=== PATIENT | female | born 1965 | race Caucasian/White ===

== ENCOUNTER 2019-11-19 10:54 | Outpatient (CLI) | payer OTHER, SELFPAY ==
--- NOTE | ~2019-11-19 | US_ITS ---
EXAMINATION: US pelvic complete w TV DATE: 11/19/2019 11:43 INDICATION: Postmenopausal bleeding TECHNIQUE: Multiple transabdominal and endovaginal sonographic images of the pelvis were obtained. COMPARISON: None. FINDINGS: The uterus measures 9.1 x 4 x 5.3 cm. A 2.3 x 2.0 cm isoechoic mass in the anterior uterine body has the appearance of an intramural fibroid. The endometrial complex measures 4 mm. The left ov homero is not visualized however no left adnexal abnormality is seen. The right ovary measures 1.3 x 1.2 x 1 cm. There is normal vascular flow in the right ovary. There is no free fluid in the pelvis. IMPRESSION: 1. No sonographic correlate for the patient's symptoms. Reviewed, dictated and finalized at location A.
== END 2019-11-19 10:55 | disposition home or self-care (01) ==
PROVIDERS: PCP Emergency Medicine; Visit Provider Obstetrics & Gynecology
DX: N95.0 Postmenopausal bleeding (principal)
CPT/HCPCS: 76830; 76856

== ENCOUNTER 2020-06-30 10:27 | Outpatient (CLI) | payer OTHER, SELFPAY ==
--- NOTE | ~2020-06-30 | MM_ITS ---
EXAMINATION: MM screening [facility] BI w cathi HISTORY: Screening mammogram TECHNIQUE: Craniocaudal and mediolateral oblique 3-D tomosynthesis images were obtained and synthetic 2-D images were generated. CAD analysis was submitted and interpreted. COMPARISON: 05/29/2018, 05/02/2017, 06/02/2015 BREAST PARENCHYMAL COMPOSITION: There are scattered areas of fibroglandular density. FINDINGS: RIGHT BREAST: A mass is present in the posterior third of the central breast. LEFT BREAST: There is no evidence of suspicious mass, calcification, or architectural distortion to s uggest malignancy. There has been no significant interval change. IMPRESSION: 1. Right breast mass. 2. Additional mammographic views and possible breast ultrasound are recommended. BI-RADS Category 0: Incomplete: Needs additional imaging evaluation. Reviewed, dictated and finalized at location A. STILE COLLECTOR IMPRESSION: 1. Right breast mass. 2. Additional mammographic views and possible breast ultrasound are recommended . BI-RADS Category 0: Incomplete: Needs additional imaging evaluation.
== END 2020-06-30 10:28 | disposition home or self-care (01) ==
PROVIDERS: PCP Emergency Medicine; Visit Provider Obstetrics & Gynecology
DX: Z12.31 Encounter for screening mammogram for malignant neoplasm of breast (principal); R92.8 Other abnormal and inconclusive findings on diagnostic imaging of breast
CPT/HCPCS: 77063; 77067

== ENCOUNTER 2020-07-28 11:40 | Outpatient (CLI) | payer OTHER, SELFPAY ==
--- NOTE | ~2020-07-28 | MMUS_ITS ---
EXAMINATION: MM diagnostic mammo unilat RT, US breast RT limited HISTORY: Right breast mass on screening mammogram TECHNIQUE: Additional 3-D tomosynthesis images of the right breast were performed and synthetic 2-D i mages were generated. CAD analysis was submitted and interpreted. High resolution limited right breas t ultrasound was performed. COMPARISON: 06/30/2020, 05/29/2018, 05/02/2017 FINDINGS: MAMMOGRAPHIC FINDINGS: There is a 4 mm oval, obscured, low density mass posterior third of the breast at the six location 9 cm deep to the nipple. No suspicious calcification or architectural distortion are identified. ULTRASOUND: There is no evidence of focal abnormal solid or cystic lesion in the vicinity of the mammographic fin ding in question. IMPRESSION: 1. Mammographically detected right breast mass without suspicious sonographic correlate is identified . 2. Recommend 6 month follow-up right diagnostic mammogram and ultrasound. BI-RADS category 3, probably benign findings. Reviewed, dictated and finalized at location A. ROAD SWITCHMAN IMPRESSION: 1. Mammographically detected right breast mass without suspicious sonographic c orrelate is identified. 2. Recommend 6 month follow-up right diagnostic mammogram and ultrasound. BI-RADS category 3, probably benign findings.
== END 2020-07-28 11:41 | disposition home or self-care (01) ==
LOC: ANHIMG 11:44
PROVIDERS: PCP Emergency Medicine; Visit Provider Obstetrics & Gynecology
DX: R92.8 Other abnormal and inconclusive findings on diagnostic imaging of breast (principal)
CPT/HCPCS: 76642; 77065

== ENCOUNTER 2021-03-16 11:22 | Outpatient (CLI) | payer OTHER, SELFPAY ==
--- NOTE | ~2021-03-16 | MMUS_ITS ---
EXAMINATION: MM diagnostic reece RT w cathi, US breast RT complete HISTORY: Right breast mass 6 month follow-up TECHNIQUE: Full field and spot ML, MLO and cc 3-D tomosynthesis images of the right breast were perfo rmed and synthetic 2-D images were generated. CAD analysis was submitted and interpreted. High resolu tion complete right breast ultrasound was performed. COMPARISON: Serial mammographic and ultrasound examinations dating back to 05/29/2018 FINDINGS: MAMMOGRAPHIC FINDINGS: A stable 6 mm circumscribed low-density opacity with halo sign is noted posteriorly in the lower mid right breast (craniocaudal Tomosynthesis image 23/69). The mammographic appearance is benign and stab le since 05/29/2018. A 7.4 mm lymph node is noted posteriorly in the outer mid right breast (clinical Tomosynthesis image 34/69). No suspicious mass, architectural distortion, malignant calcification, skin thickening or retraction of the right breast is evident. ULTRASOUND: Prominent ducts are noted in the subareolar area, measuring up to 4.8 mm diameter. No suspicious mass or shadowing is noted. IMPRESSION: 1. No mammographic evidence of malignancy 2. Routine mammographic screening is recommended. BI-RADS Category 2: Benign finding(s). Reviewed, dictated and finalized at location A. IMPRESSION: 1. No mammographic evidence of malignancy 2. Routine mammographic screening is recommended. BI-RADS Category 2: Benign finding(s).
== END 2021-03-16 11:23 | disposition home or self-care (01) ==
PROVIDERS: PCP Emergency Medicine; Visit Provider Obstetrics & Gynecology
DX: R92.8 Other abnormal and inconclusive findings on diagnostic imaging of breast (principal)
CPT/HCPCS: 76641; 77061; 77065; G0279

== ENCOUNTER 2021-10-03 10:11 | Outpatient (CLI) | payer OTHER, SELFPAY ==
--- NOTE | ~2021-10-03 | MM_ITS ---
EXAMINATION: MM screening re[facility] BI w cathi HISTORY: Screening mammogram TECHNIQUE: Craniocaudal and mediolateral oblique 3-D tomosynthesis images were obtained and synthetic 2-D images were generated. CAD analysis was submitted and interpreted. COMPARISON: No prior mammogram is available for comparison at this institution. BREAST PARENCHYMAL COMPOSITION: There are scattered areas of fibroglandular density. FINDINGS: There is increased prominence of fibroglandular density in the upper outer right breast sin ce 03/16/2021. Diagnostic right mammogram and right breast ultrasound examination are recommended. Otherwise no suspicious mass, architectural distortion, malignant calcification, skin thickening or r etraction of either breast is noted. IMPRESSION: 1. Interval increased prominence of density in upper outer quadrant of right breast 2. Diagnostic right mammogram and right breast ultrasound examination are recommended BI-RADS Category 0: Incomplete: Needs additional imaging evaluation. Reviewed, dictated and finalized at location A. IMPRESSION: 1. Interval increased prominence of density in upper outer quadrant of right br east 2. Diagnostic right mammogram and right breast ultrasound examination are recom mended BI-RADS Category 0: Incomplete: Needs additional imaging evaluation.
== END 2021-10-03 10:12 | disposition home or self-care (01) ==
LOC: ANHIMG 10:13
PROVIDERS: PCP Emergency Medicine; Visit Provider Obstetrics & Gynecology
DX: Z12.31 Encounter for screening mammogram for malignant neoplasm of breast (principal); R92.8 Other abnormal and inconclusive findings on diagnostic imaging of breast
CPT/HCPCS: 77063; 77067

== ENCOUNTER 2022-12-20 09:42 | Outpatient (CLI) | payer OTHER, SELFPAY | END 2022-12-20 09:43 | disposition home or self-care (01) | LOC: ANHAUDIO 09:44 | PROVIDERS: PCP Emergency Medicine; Visit Provider Emergency Medicine | DX: H91.90 Unspecified hearing loss, unspecified ear (principal) | CPT/HCPCS: 92557; 92568 ==

== ENCOUNTER 2023-12-20 05:50 | Day surgery (SDC) | payer OTHER, SELFPAY ==
--- NOTE | 2023-12-19 11:01 | WPDANESEPPF ---
Anes - Initial Pre Proc Eval Procedure: Operation Date: 12/20/23 07:30 Proposed Procedures p Hammer Toe Repair Third and Fourth Digit Left Foot - Afshin Damon Jr., DPM s Kathy Osteotomy Third Metatarsal Left Foot, Possible Plantar Plate Plate Repair - Afshin Damon Jr., DPM Date/Time: 12/19/23 11:01 Surgeon: Afshin Damon Jr., DPM Pre Op Diagnosis: Hammer Toe 3rd & 4th Digits LT FT w/Metatarsalgia Patient Data Age: 58 Gender: F Height: 1.6 m Weight: 70.307 kg Allergies Allergy/AdvReac Type Severity Reaction Status Date / Time iodine Allergy Intermediate Hives Verified 12/20/23 06:10 Penicillins Allergy Intermediate Hives Verified 12/20/23 06:10 Sulfa (Sulfonamide Allergy Intermediate Hives Verified 12/20/23 06:10 Antibiotics) Home Medications Medication Instructions Recorded Confirmed Type temazepam 15 mg capsule 15 mg PO QHS PRN sleep #30 caps 11/29/23 12/20/23 Rx Patient hx anesthesia problems: none Family hx anesthesia problems: none Results Review: All pre-operative results and documents have been reviewed as part of the pre-operative evaluation. [facility] Past Medical History Medical History Cervical polyp Chronic frontal sinusitis Menopausal symptoms Nasal septal abscess Nicotine dependence, unspecified, uncomplicated Ophthalmic herpes zoster Vaginal delivery x 3 Vaginal discharge Weight gain Surgical History Surgical History H/O breast surgery H/O foot surgery H/O laparoscopy History of tubal ligation Previous section Family History Family History Mother Family history of coronary artery disease Other Family history of heart disease in male family member before age 55 Social History Social History Years smoked: 20 Smoking status: Former smoker Tobacco type: cigarettes Second hand tobacco smoke exposure: No Smoking end date: 10/23/06 Additional smoking assessment comments: quit 1998 Alcohol intake: current Drinks per week: 5 Substance use: never Substance use type: does not use Do You Feel Safe in your Home?: Yes Lack of Transportation: No Lack of Food: Never True Current Housing: I Have Housing Concerned About Future Housing: No Difficulty Paying Gas/Electric Bills: No Difficulty Paying for Meds: No Currently Unemployed: No Education: Associate Degree Difficulty w/ Childcare or Family Care: No Living arrangements: with family Spiritual care concerns: No Anes - Eval Final PreProcedure Day of Procedure 12/19/23 11:01 Patient weight: overweight Heart: regular rate and rhythm Lungs: clear to auscultation Airway: Mallampati scale class II Neurological: alert and oriented Last oral intake: >/= 8 hours ASA classification: II Emergent: no Anesthetic plan: proceed Anesthesia type and monitoring: general LMA and standard monitoring Results Review: All pre-operative results and documents have been reviewed as part of the pre-operative evaluation. Informed Consent: The patient's anesthetic plan and its attendant risks and benefits were discussed with the patient/family/POA. Questions were solicited and answers provided to the satisfaction of the patient/family/POA.
[2023-12-20] VITALS (8 sets, daily range): BP systolic 124–143; BP diastolic 76–111; PULSE 59–76; RESP 11–16; TEMP 35.7–36.9; O2SAT 96–100
--- NOTE | ~2023-12-20 | XR_ITS ---
EXAMINATION: XR surgery orthopedic DATE: 12/20/2023 08:48 INDICATION: Left foot third and fourth toe hammertoe repair. TECHNIQUE: 3 fluoroscopic images of the left foot were obtained during procedure performed by Dr. Dev landeros. Radiologist was not present for the imaging or procedure. The amount of fluoroscopy time used during this procedure was 0.3 minutes. COMPARISON: None. FINDINGS: Images demonstrate osteotomies at the heads of the third, fourth and fifth proximal phalanges. Anteri apoorva directed pins extend along the third and fourth digits on the pelvis to the base of the proximal phalanges. A fixation devices been placed over the wire at the third toe at the level of the proxima l interphalangeal joint. There are change of likely prior shortening osteotomies with screw fixations at the heads of the second and third metatarsals. Additional chronic changes of prior bunionectomy a nd closing wedge osteotomy with staple fixation at the medial base of the first proximal phalanx. No acute fracture. Expected postoperative soft tissue gas at the third-fifth toes. IMPRESSION: 1. Fluoroscopy utilized during orthopedic procedure for hammertoe corrections at the third-fifth toes . Reviewed, dictated and finalized at location B. IMPRESSION: 1. Fluoroscopy utilized during orthopedic procedure for hammertoe corrections a t the third-fifth toes.
[2023-12-20] MEDS: LACTATED RINGERS 1,000 ML 30 ML IV CONT ×2 (06:23→09:02)
[2023-12-20] MEDS: CLINDAMYCIN 900 MG/NS 50 ML 900 MG/50 ML PIGGYBACK 50 MG IVPB (07:04)
[2023-12-20] MEDS: SCOPOLAMINE 1 MG PATCH 1 PATCH TRANSDERM (07:05)
--- NOTE | 2023-12-20 07:11 | WPDHPUPDATE1 ---
History and Physical Update Update Date/Time: 12/20/23 07:11 History and Physical has been reviewed, including an updated exam of the patient. There are NO changes in the patient's condition. Risks, benefits, and alternatives have been discussed and questions answered. Patient agrees to proceed with procedure.
[2023-12-20] MEDS: LIDOCAINE HCL 2% LOCAL INJ 20 ML VIAL 10 ML INFILTRATE (08:39)
--- NOTE | 2023-12-20 09:15 | W.PM.PROC2 ---
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 Kathy shortening 3rd metatarsal osteotomy left foot 2. Lateral release of the 1st metatarsal phalangeal joint left foot 3. Hammertoe correction 3rd through 5th digits left foot Surgeon Afshin Damon Jr., DPM Anesthesia General and Local Indications Hammertoe deformites to lesser digits left foot with ball of foot pain and divergence of the 3rd and 4th digits Description of Procedure PROCEDURE IN DETAIL: Under mild sedation, the patient was brought into the operating room, placed on the operating table in supine position. A pneumatic ankle tourniquet was placed about the patient's ipsilateral ankle. Following general LMA, a local anesthetic block was obtained about the left foot and ankle utilizing 20 cc of 2% Lidocaine plain and 0.5% Marcaine plain. The foot was then scrubbed, prepped, and draped in the usual aseptic manner. An Esmarch bandage was then used to exsanguinate the patient's foot and the pneumatic ankle tourniquet was then inflated. Surgery began in the following manner: Attention was directed to the third digit of the left foot where a 5 cm incision was made from the distal interphalangeal joint extending to the 3rd metatarsal shaft. A transverse tenotomy was created dorsal to the proximal interphalangeal joint, next the head of the proximal phalanx and base of the middle phalanx was resected with an oscillating saw blade, the Arthrex hammertoe planer was used to denude and prepare the joint for the hammertoe implant from the base of the middle phalanx and distal proximal phalanx. Next, I implanted the Arthrex 12mm Dynanite straight hammertoe implant in a cannulated fashion using standard technique. Fluoroscopy was used to make sure that the digit and implant were appropriately positioned. I duplicated the same procedure for the 4th and 5th toes and with the exception of only using a single 1.1 K wire in an intramedullary fashion to stabilize the fourth digit and no fixation for the 5th digit. The dissection was continued to the dorsal aspect of the 3rd metatarsal head of the left foot through the same incision, I dissected just medial to the extensor tendon to the 3rd digit. The incision was continued deep down through the subcutaneous tissues using sharp and blunt dissection. All bleeders were cauterized as necessary. A full-length periosteal incision was made overlying the 3rd metatarsal head distally. Next, a sagittal bone saw was used to make an osteotomy starting along the dorsal aspect of the articular surface to the head of the 3rd metatarsal. After this osteotomy was completed, the head of the 3rd metatarsal was noted to float into a more corrected proximal position. Two Arthrex Screws were driven from dorsal to plantar across the osteotomy site with excellent compression noted. The wound site was then flushed with copious amounts of sterile saline. Next, the periosteum and capsular structures overlying 3rd digit and 3rd metatarsophalangeal joint were reapproximated with 4-0 Vicryl. Next, subcutaneous structures were reapproximated and coapted utilizing 4-0 Vicryl. I reapproximated the extensor tendon overlying the 3rd digit proximal interphalangeal joint with 4-0 Vicryl. Next, the skin was reapproximated and coapted utilizing 4-0 Prolene in running subcuticular suture fashion technique. The small incision to the base of the first metatarsal base was reapproximated with 4-0 Prolene in simple interrupted suture technique. Upon completion of the procedure, the incisions were dressed with Adaptic, 4x4s, Kerlix, and Coban. The pneumatic ankle tourniquet was then deflated and a prompt hyperemic response was noted to all digits of the foot. A posterior splint was then ap
--- NOTE | 2023-12-20 10:12 | WPDANESPN ---
Anes - Prog Note Post-Op Date/Time: 12/20/23 10:12 Cardiovascular status: normal Respiratory status: normal Airway patency: baseline Mental status: baseline Post-Op hydration status: normal Vital Signs: Last Vital Signs Temp 35.7 C L 12/20/23 09:02 Pulse 59 L 12/20/23 09:47 Resp 12 12/20/23 09:47 BP 129/80 12/20/23 09:47 Pulse Ox 99 12/20/23 09:47 O2 Del Method Simple Face Mask 12/20/23 09:47 O2 Flow Rate 2 12/20/23 09:47 Pain Score (VAS): 2 I/O: Intake & Output 12/19/23 12/20/23 12/20/23 23:59 07:59 15:59 Intake Total 1000 Balance 1000 Post-procedural complaints: none Patient Feedback: Patient satisfied with anesthetic care. Other Findings: Patient vital signs back to baseline. Patient denies nausea and vomiting. Patient's pain under control. Patient OK for discharge.
[2023-12-20] MEDS: oxyCODONE HCL (*CRX) 5 MG TAB IR PO (10:21)
== END 2023-12-20 10:43 | disposition home or self-care (01) ==
PROVIDERS: PCP Emergency Medicine; Visit Provider Podiatrist Foot & Ankle Surgery
PROC: (CPT 28299; 2023-12-20 07:30)
DX: M77.42 Metatarsalgia, left foot (principal); M20.42 Other hammer toe(s) (acquired), left foot
CPT/HCPCS: 28308; 28285 ×3; L8699; 99199